=== PATIENT | female | born 1985 | race Caucasian/White ===

== ENCOUNTER 2019-07-07 05:31 | Inpatient (IN) | payer MEDICAID ==
[2019-07-07] VITALS (21 sets, daily range): BP systolic 118–141; BP diastolic 64–94; PULSE 71–106; TEMP 97.2–98.4
[~2019-07-07] VITALS: Ht 152.4 cm; Wt 70.0 kg
[2019-07-07 06:16] LABS: BASO % 0.3 % (0.0-2.0); EOS # 0.1 (0.0-0.7); EOS % 0.8 % (0-4.0); GRAN # 10.6 (1.4-6.5); GRAN % 70.6 % (42.2-75.2); HEMOGLOBIN 10.1 g/dl (12.5-16.0); LYMPH # 2.9 (1.2-3.4); LYMPH % 19.3 % (20.0-51.0); MEAN CELL VOLUME 83 fl (80.0-100.0); MEAN CORPUSCULAR HEMOGLOBIN 25 pg (27.0-31.0); MEAN CORPUSCULAR HGB CONC 31 g/dl (33.0-37.0); MEAN PLATELET VOLUME 11.7 fl (7.4-10.4); MONO # 1.2 (0.1-0.6); MONO % 8.1 % (1.7-9.3); PLATELET COUNT 269 K/mm3 (130-400); RED BLOOD COUNT 3.99 M/mm3 (4.10-5.30); REDCELL DISTRIBUTION WIDTH-CV 14.4 % (11.5-14.5)
[2019-07-07 06:19] LABS: HEMATOCRIT 32.9 % (37.0-47.0)
[2019-07-07] MEDS ORDERED: PRENATAL (06:53)
[2019-07-07 07:17] LABS: TRICYCLIC ANTIDEPRESS URINE NEGATIVE
--- NOTE | 2019-07-07 07:18 | NUR ---
0700 patient ready for OR. consents signed and assessment completed. t 120's
[2019-07-07] MEDS ORDERED: PERCOCET 325 MG1 TA2 PO (07:32)
[2019-07-07] MEDS ORDERED: MOTRIN 800800 MG/TAB PO (07:32)
[2019-07-08] VITALS: BP 128/68; PULSE 80; TEMP 97.5
[2019-07-08 04:00] VITALS: BP 124/72; PULSE 66; TEMP 98
--- NOTE | 2019-07-08 04:55 | NUR ---
PT HAS SLEPT WELL AND BRST FEEDING IS GOING BETTER. MOM IS UPDATED ON BILI RESULTS
[2019-07-08 08:10] VITALS: BP 113/77; PULSE 77; TEMP 98.2
--- NOTE | 2019-07-08 12:02 | NUR ---
Initial visit; Patient thanked Gift Shop Manager for offering congratulations and God's blessings for the of her son. Gift Shop Manager thanked family for choosing [facility].
--- NOTE | 2019-07-08 16:33 | NUR ---
KIYA ruano responded to a social insurance adviser consult for the patient due to a positive UDS for cannabinoids. KIYA ruano met with the patient and the FOBs mother, Brisa Hutson. The patient's nurse reports the FOB is currently incarcerated. The patient has a car seat, crib and other baby supplies. The patient's nurse reports the patient is bottle feeding the baby. The patient states that she has two other children 16 and 11 and shared custody with the FOB. The patient has a history of anxiety and depression. The patient reports she has therapy at [facility] in [place]. KIYA ruano addressed the marijuana usage. The patient states that she did use marijuana for anxiety, to be able to sleep, and for nausea. KIYA ruano offered drug treatment to the patient, she declined and stated that she did not have a problem with it. The patient's nurse reports the patient is appropriate with the baby and the baby is not currently on YOJANA scoring protocal. KIYA ruano collaborated the above information with the patient's nurse. CPS report # [id number]
[2019-07-08 20:00] VITALS: BP 131/75; PULSE 70; TEMP 97.9
[2019-07-09 08:00] VITALS: BP 120/63; PULSE 76; TEMP 99.2
--- NOTE | 2019-07-09 15:08 | NUR ---
This RN took phone call this morning around 0930 for woman that asked for Pt by name, when I offered to transfer call into room woman replied no and states that we need to look into Pt because she used drugs in her , Meth and marijuana. I thanked her for the information.
[2019-07-09 16:15] VITALS: BP 129/63; PULSE 78; TEMP 99.2
[2019-07-09 20:24] VITALS: BP 135/85; PULSE 80; TEMP 98.8
[2019-07-10 07:02] VITALS: BP 122/68; PULSE 78; TEMP 98.1
--- NOTE | 2019-07-10 11:02 | NUR ---
Initial visit; Patient thanked Asp Web Developer for offering congratulations and God's blessings for the of her son. Asp Web Developer thanked mom for choosing [facility].
== END 2019-07-10 13:20 | disposition home or self-care (01) | DRG 787 ==
LOC: OB 05:31
PROVIDERS: ADMIT Obstetrics & Gynecology
PROC: 10D00Z1 Extraction of Products of Conception, Low, Open Approach (ICD-10-PCS; principal; 2019-07-07)
DX: O34.211 Maternal care for low transverse scar from previous cesarean delivery (principal); O99.324 Drug use complicating childbirth; O99.824 Streptococcus B carrier state complicating childbirth; Z3A.39 39 weeks gestation of pregnancy; Z37.0 Single live birth; O99.344 Other mental disorders complicating childbirth; F41.8 Other specified anxiety disorders; O24.429 Gestational diabetes mellitus in childbirth, unspecified control; F12.90 Cannabis use, unspecified, uncomplicated
CPT/HCPCS: J0330; J0690; J2270; J2405; J2590; J2704; J2710; J3010; J7120